=== PATIENT | female | born 1995 | race Caucasian/White ===

== ENCOUNTER 2017-04-22 12:17 | Emergency (ER) | payer MEDICAID, OTHER ==
--- NOTE | 2017-04-22 14:05 | ED PDOC ---
Arrival/HPI - General Historian: Patient - History of Present Illness Time/Duration: Other (2 days) Symptom Onset: Gradual Symptom Course: Worsening Quality: Burning Severity Level: 3 - General Chief Complaint: ENT Problem Time Seen by Provider: 04/22/17 14:01 - History of Present Illness Narrative History of Present Illness (Text): 04/22/17 14:01 22-year-old female presents today with a 2 day history of sore throat. Patient denies fevers at home. Complaining of burning with swallowing. Denies nasal congestion or cough. No abdominal pain. No dizziness or weakness. Patient also complaining of a small bump to the area just adjacent to the anus. Patient concerned that it may be herpes. no other complaints. (Fariba Yoder) Past Medical History - Provider Review Nursing Documentation Reviewed: Yes - Travel History Have you recently traveled outside [place] w/in the past 3 mons?: No - Infectious Disease Hx of Infectious Diseases: None - Tetanus Immunization Tetanus Immunization: Unknown - Cardiac Hx Cardiac Disorders: No Hx Hypertension: No - Pulmonary Hx Tuberculosis: No - Neurological HX Cerebrovascular Accident: No Hx Seizures: No - Hematological/Oncological Hx Cancer: No - Genitourinary/Gynecological Hx Sexually Transmitted Diseases: No - Psychiatric Hx Substance Use: Yes - Anesthesia Hx Anesthesia: No Family/Social History - Physician Review Nursing Documentation Reviewed: Yes Family/Social History: Unknown Family HX Smoking Status: Heavy Smoker > 10 Cigarettes Daily Hx Alcohol Use: Yes Frequency of alcohol use: Daily Hx Substance Use: Yes Substance used: pot Allergies/Home Meds Allergies/Adverse Reactions: Allergies No Known Allergies Allergy (Verified 04/22/17 12:29) Review of Systems - Review of Systems Constitutional: absent: Fatigue, Fevers ENT: Sore Throat. absent: Sinus Congestion Respiratory: absent: SOB, Cough Cardiovascular: absent: Chest Pain, Palpitations Gastrointestinal: absent: Abdominal Pain, Nausea, Vomiting Genitourinary Female: absent: Dysuria, Frequency Musculoskeletal: absent: Arthralgias, Back Pain, Neck Pain Skin: Rash Neurological: absent: Headache, Dizziness Psychiatric: absent: Anxiety, Depression Physical Exam Vital Signs Reviewed: Yes Temperature: Afebrile Blood Pressure: Normal Pulse: Regular Respiratory Rate: Normal Appearance: Positive for: Well-Appearing, Non-Toxic, Comfortable Pain Distress: None Mental Status: Positive for: Alert and Oriented X 3 - Systems Exam Head: Present: Atraumatic Conjunctiva: Present: Normal Ears: Present: Normal, NORMAL TM Mouth: Present: Moist Mucous Membranes Pharnyx: Present: ERYTHEMA. No: EXUDATE, TONSILS ENLARGED, Peritonsilar Swelling, Uvular Deviation, Muffled/Hoarse Voice Nose (External): Present: Atraumatic Nose (Internal): Present: Normal Inspection Neck: Present: Normal Range of Motion Respiratory/Chest: Present: Clear to Auscultation, Good Air Exchange. No: Respiratory Distress, Accessory Muscle Use Cardiovascular: Present: Regular Rate and Rhythm, Normal S1, S2. No: Murmurs Rectal: Present: Other (there is a small pinpoint skin colored papule noted to the right side of the buttock just adjacent to the anus; no tenderness, no erythema; no warmth. ) Back: Present: Normal Inspection Neurological: Present: GCS=15 Skin: Present: Warm, Dry, Normal Color. No: Rashes Psychiatric: Present: Alert, Oriented x 3 Vital Signs Temp Pulse Resp BP Pulse Ox 04/22/17 14:45 98 F 70 16 110/72 98 04/22/17 12:31 98.3 F 76 17 108/73 96 Medical Decision Making ED Course and Treatment: 04/22/17 14:34 Patient is nontoxic well appearing in no distress. Vital signs are stable Tolerating p.o. fluids and solids pt with small skin colored pinpoint papule on buttock adjacent to anus; this is NOT herpes as patient was concerned. no signs of infection. non tender. I advised follow up with primary care physician within the next 2 days, advised to increase fluids take medications as prescribed and return if symptoms worsen persist or if new symptoms develop IMPRESSION; pharyngitis Motrin every 6 hours as needed for pain/fever reduction Increase fluids Amoxicillin; 3 times daily x10 days Follow up primary care physician within the next 2 days Saltwater gargles, throat lozenges Return if symptoms worsen persist or if the symptoms develop (Fariba Yoder) I was available for consultation during PA evaluation. The chart was reviewed by me, and I agree with disposition. The documented history was done by the physician machine tailer. The documented physical exam was done by the physician machine tailer. The documented procedures were done by the physician machine tailer. (Parmjit Seo) Disposition/Present on Arrival - Present on Arrival Any Indicators Present on Arrival: No History of DVT/PE: No History of Uncontrolled Diabetes: No Urinary Catheter: No History of Decub. Ulcer: No History Surgical Site Infection Following: None - Disposition Have Diagnosis and Disposition been Completed?: Yes Disposition Time: 13:40 Patient Plan: Discharge - Disposition Diagnosis: Pharyngitis, Rash Disposition: HOME/ ROUTINE Condition: GOOD Discharge Instructions (ExitCare): Pharyngitis (ED) Additional Instructions: Motrin every 6 hours as needed for pain/fever reduction Increase fluids Amoxicillin 3 times daily x10 days Follow up primary care physician within the next 2 days Saltwater gargles, throat lozenges Return if symptoms worsen persist or if the symptoms develop Prescriptions: Amoxicillin 500 mg PO TID #30 tab Ibuprofen [Motrin Tab] 400 mg PO Q6H PRN #20 tab PRN Reason: Pain, Mild (1-3) Referrals: [facility] [place] - Follow up with primary Lenora Roman MD [Staff Provider] - Follow up with primary Wero Abreu DO [Doctor Osteopathy] - Follow up with primary Forms: [employer] (Yoruba), WORK NOTE
[2017-04-22 14:46] VITALS: BP 110/72; PULSE 70; RESP 16; TEMP 98; O2SAT 98
== END 2017-04-22 14:47 | disposition home or self-care (01) ==
LOC: ED 12:17
DX: J02.9 Acute pharyngitis, unspecified (principal); R21 Rash and other nonspecific skin eruption; F17.210 Nicotine dependence, cigarettes, uncomplicated

== ENCOUNTER 2018-02-05 05:07 | Emergency (ER) | payer MEDICAID ==
[2018-02-05] MEDS ORDERED: Sodium Chloride 0.9% 1,000 ML IV STA (05:43)
--- NOTE | 2018-02-05 05:46 | ED PDOC ---
Arrival/HPI - General Chief Complaint: Abdominal Pain Time Seen by Provider: 02/05/18 05:37 Historian: Patient - History of Present Illness Narrative History of Present Illness (Text): 02/05/18 05:43 22 year old female, with no significant past medical history, who presents to the emergency department complaining of abdominal pain since early this morning. Patient notes associated diarrhea. Patient states her menstrual period began yesterday. Patient denies any fever, chills, chest pain, shortness of breath, nausea, vomiting, diarrhea, dysuria, back pain, vaginal discharge, neck pain, headache, dizziness, or any other complaints. Time/Duration: 4-6 hours Symptom Onset: Sudden Symptom Course: Unchanged Activities at Onset: Light Context: Home Past Medical History - Provider Review Nursing Documentation Reviewed: Yes - Infectious Disease Hx of Infectious Diseases: None - Tetanus Immunization Tetanus Immunization: Unknown - Cardiac Hx Cardiac Disorders: No Hx Hypertension: No - Pulmonary Hx Tuberculosis: No - Neurological HX Cerebrovascular Accident: No Hx Seizures: No - Hematological/Oncological Hx Cancer: No - Genitourinary/Gynecological Hx Sexually Transmitted Diseases: No - Psychiatric Hx Substance Use: Yes - Anesthesia Hx Anesthesia: No Family/Social History - Physician Review Nursing Documentation Reviewed: Yes Family/Social History: Unknown Family HX Smoking Status: Heavy Smoker > 10 Cigarettes Daily Hx Alcohol Use: Yes Hx Substance Use: Yes Substance used: pot Allergies/Home Meds Allergies/Adverse Reactions: Allergies No Known Allergies Allergy (Verified 02/05/18 05:37) Home Medications: Home Meds Medication Instructions Recorded Confirmed No Known Home Med 02/05/18 02/05/18 Review of Systems - Physician Review All systems were reviewed & negative as marked: Yes - Review of Systems Constitutional: Normal Eyes: Normal ENT: Normal Respiratory: Normal. absent: SOB, Cough Cardiovascular: Normal. absent: Chest Pain Gastrointestinal: Abdominal Pain, Diarrhea. absent: Nausea, Vomiting Genitourinary Female: Normal. absent: Dysuria, Frequency, Hematuria Musculoskeletal: Normal. absent: Back Pain, Neck Pain Skin: Normal. absent: Rash Neurological: Normal. absent: Headache, Dizziness Endocrine: Normal Hemo/Lymphatic: Normal Psychiatric: Normal Physical Exam Vital Signs Temp Pulse Resp BP Pulse Ox 02/05/18 05:48 98.7 F 62 16 114/57 L 100 - Systems Exam Head: Present: Atraumatic, Normocephalic Pupils: Present: PERRL Extroacular Muscles: Present: EOMI Conjunctiva: Present: Normal Mouth: Present: Moist Mucous Membranes Neck: Present: Normal Range of Motion Respiratory/Chest: Present: Clear to Auscultation, Good Air Exchange. No: Respiratory Distress, Accessory Muscle Use Cardiovascular: Present: Regular Rate and Rhythm, Normal S1, S2. No: Murmurs Abdomen: Present: Tenderness (Left Lower abdominal tenderness), Normal Bowel Sounds. No: Distention, Peritoneal Signs, Rebound, Guarding Back: Present: Normal Inspection Upper Extremity: Present: Normal Inspection. No: Cyanosis, Edema Lower Extremity: Present: Normal Inspection. No: Edema Neurological: Present: GCS=15, CN II-XII Intact, Speech Normal Skin: Present: Warm, Dry, Normal Color. No: Rashes Psychiatric: Present: Alert, Oriented x 3, Normal Insight, Normal Concentration Medical Decision Making ED Course and Treatment: 02/05/18 05:46 Impression: 22 year old presents to the emergency department complaining of abdominal pain since early this morning. Plan: -- Labs -- Urinalysis -- HCG, Qualitative Urine -- Sodium Chloride -- Reassess and disposition Progress Notes: 02/05/18 07:00 Case endorsed to /pending labs/CT Abdom/Pelvis/reassess/final disposition - Lab Interpretations Lab Results: 02/05/18 06:00 Lab Results 02/05/18 06:00: WBC 16.9 H D, RBC 4.66, Hgb 14.4, Hct 41.7, MCV 89.5, MCH 30.9, MCHC 34.5, RDW 13.8, Plt Count 287, MPV 11.5 H - RAD Interpretation Radiology Orders: 02/05/18 06:42 ABD & PELVIS IV CONTRAST ONLY [CT] Stat - Medication Orders Current Medication Orders: Sodium Chloride (Sodium Chloride 0.9%) 1,000 mls @ 999 mls/hr IV .Q1H1M STA Stop: 02/05/18 06:43 Last Admin: 02/05/18 06:12 Dose: 999 mls/hr eMAR Start Stop Document 02/05/18 06:12 IT (Rec: 02/05/18 06:12 IT [facility] [id number]) Intravenous Solution Start Date 02/05/18 Start Time 06:12 End Date 02/05/18 End time 07:12 Total Infusion Time 60 - Scribe Statement The provider has reviewed the documentation as recorded by the Scribso Andersen All medical record entries made by the Scribe were at my direction and personally dictated by me. I have reviewed the chart and agree that the record accurately reflects my personal performance of the history, physical exam, medical decision making, and the department course for this patient. I have also personally directed, reviewed, and agree with the discharge instructions and disposition. Disposition/Present on Arrival - Present on Arrival Any Indicators Present on Arrival: No History of DVT/PE: No History of Uncontrolled Diabetes: No Urinary Catheter: No History of Decub. Ulcer: No History Surgical Site Infection Following: None - Disposition Have Diagnosis and Disposition been Completed?: No Diagnosis: Abdominal pain Disposition Time: 07:00 Condition: STABLE Forms: [employer] (Bahraini)
[2018-02-05 06:29] LABS: HEMOGLOBIN 14.4 g/dL (12.0-16.0); MEAN CELL VOLUME 89.5 fl (80.0-105.0); MEAN CORPUSCULAR HEMOGLOBIN 30.9 pg (25.0-35.0); MEAN CORPUSCULAR HGB CONC 34.5 g/dl (31.0-37.0); MEAN PLATELET VOLUME 11.5 fl (7.0-11.0); RBC 4.66 10^6/uL (3.5-6.1); RED CELL DISTRIBUTION WIDTH 13.8 % (11.5-14.5); WHITE BLOOD COUNT 16.9 10^3/ul (4.5-11.0)
[2018-02-05 06:47] LABS: ALB/GLOB RATIO 1.6 (1.1-1.8); ALBUMIN 4.8 g/dL (3.0-4.8); ALT/SGPT 30 U/L (7-56); AST/SGOT 27 U/L (14-36); BLOOD UREA NITROGEN 10 mg/dL (7-21); CALCIUM 9.1 mg/dL (8.4-10.5); GFR AFRICAN-AMERICAN > 60; GFR NON-AFRICAN AMERICAN > 60; LIPASE 26 U/L (23-300)
[2018-02-05 06:49] LABS: URINE BILIRUBIN NEGATIVE (NEGATIVE); URINE BLOOD LARGE (NEGATIVE); URINE GLUCOSE (UA) NEGATIVE (NEGATIVE); URINE LEUKOCYTE ESTERASE TRACE Leu/uL (NEGATIVE); URINE PROTEIN >=300 mg/dL (<30 mg/dL); URINE UROBILINOGEN 0.2 E.U./dL (<1 E.U./dL)
[2018-02-05 06:54] LABS: URINE APPEARANCE BLOODY (CLEAR); URINE COLOR RED (YELLOW)
[2018-02-05 06:55] LABS: URINE RBC TNTC /hpf (0-2); URINE WBC 25 - 30 /hpf (0-6)
[2018-02-05 06:56] LABS: HCG,QUALITATIVE URINE NEGATIVE (NEGATIVE); URINE BACTERIA MOD (NEG)
--- NOTE | 2018-02-05 07:21 | ED PDOC ---
Physical Exam Vital Signs Reviewed: Yes Vital Signs Temp Pulse Resp BP Pulse Ox 02/05/18 07:07 98.1 F 70 18 121/70 100 02/05/18 05:48 98.7 F 62 16 114/57 L 100 Temperature: Afebrile Blood Pressure: Normal Pulse: Regular Respiratory Rate: Normal Appearance: Positive for: Well-Appearing, Non-Toxic, Comfortable Pain Distress: None Mental Status: Positive for: Alert and Oriented X 3 - Systems Exam Head: Present: Atraumatic, Normocephalic Pupils: Present: PERRL Extroacular Muscles: Present: EOMI Conjunctiva: Present: Normal Mouth: Present: Moist Mucous Membranes Neck: Present: Normal Range of Motion Respiratory/Chest: Present: Clear to Auscultation, Good Air Exchange. No: Respiratory Distress, Accessory Muscle Use Cardiovascular: Present: Regular Rate and Rhythm, Normal S1, S2. No: Murmurs Abdomen: Present: Tenderness (Left Lower abdominal tenderness), Normal Bowel Sounds. No: Distention, Peritoneal Signs Back: Present: Normal Inspection Upper Extremity: Present: Normal Inspection. No: Cyanosis, Edema Lower Extremity: Present: Normal Inspection. No: Edema Neurological: Present: GCS=15, CN II-XII Intact, Speech Normal Skin: Present: Warm, Dry, Normal Color. No: Rashes Psychiatric: Present: Alert, Oriented x 3, Normal Insight, Normal Concentration Medical Decision Making ED Course and Treatment: 02/05/18 07:12 Case endorsed to me pending labs/CT Abdom/Pelvis/reassess/final disposition. Patient is a 22 year old female who presents to the emergency department complaining of abdominal pain since early this morning. Patient is resting comfortably in bed in no acute distress. Patient presents no new complaints. 02/05/18 09:14 Upon reassessment, patient informs improved symptoms. Patient will be discharged home with treatment for UTI and follow up instruction with PMD. - Lab Interpretations Lab Results: 02/05/18 06:00 02/05/18 06:00 Lab Results 02/05/18 06:00: WBC 16.9 H D, RBC 4.66, Hgb 14.4, Hct 41.7, MCV 89.5, MCH 30.9, MCHC 34.5, RDW 13.8, Plt Count 287, MPV 11.5 H 02/05/18 06:00: Sodium 142, Potassium 3.7, Chloride 105, Carbon Dioxide 25, Anion Gap 15, BUN 10, Creatinine 0.6 L, Est GFR ( Amer) > 60, Est GFR ( Non-Af Amer) > 60, Random Glucose 112 H, Calcium 9.1, Total Bilirubin 0.6, AST 27, ALT 30, Alkaline Phosphatase 45, Total Protein 7.7, Albumin 4.8, Globulin 3.0, Albumin/Globulin Ratio 1.6, Lipase 26 02/05/18 06:00: Urine Color Red, Urine Appearance Bloody, Urine pH 6.0, Ur Specific [place] >= 1.030, Urine Protein >=300 H, Urine Glucose (UA) Negative, Urine Ketones >=80, Urine Blood Large H, Urine Nitrate Negative, Urine Bilirubin Negative, Urine Urobilinogen 0.2, Ur Leukocyte Esterase Trace H, Urine RBC Tntc, Urine WBC 25 - 30, Ur Epithelial Cells 3 - 4, Urine Bacteria Mod , Urine HCG, Qual Negative - RAD Interpretation Narrative RAD Interpretations (Text): Date of service: 02/05/2018 PROCEDURE: CT Abdomen and Pelvis with contrast HISTORY: Abdominal pain COMPARISON: None. TECHNIQUE: CT scan of the abdomen and pelvis was performed after administration of intravenous contrast. Oral contrast was not administered. Coronal and sagittal reformatted images were obtained. Contrast dose: 100 mL Omnipaque 350 Radiation dose: Total exam DLP = 215.10 mGy-cm. This CT exam was performed using one or more of the following dose reduction techniques: Automated exposure control, adjustment of the mA and/or kV according to patient size, and/or use of iterative reconstruction technique. FINDINGS: LOWER THORAX: The visualized lungs are clear. LIVER: There is mild hepatomegaly. No gross lesion or ductal dilatation. GALLBLADDER AND BILE DUCTS: No calcified gallstones. PANCREAS: Normal in size and appearance. No gross lesion or ductal dilatation. SPLEEN: Normal in size and appearance. ADRENALS: No discrete nodule. KIDNEYS AND URETERS: Normal in size and appearance. No hydronephrosis. No solid mass. VASCULATURE: Unremarkable. No aortic aneurysm. BOWEL: The small bowel loops are normal in caliber. The colon is unremarkable. No bowel dilatation or obstruction APPENDIX: Normal appendix. PERITONEUM: No free fluid. No free air. LYMPH NODES: No enlarged lymph nodes. BLADDER: Unremarkable. REPRODUCTIVE: The uterus is normal in size. BONES: No acute fracture. Within normal limits for the patient's age. OTHER FINDINGS: None. IMPRESSION: No acute abdominal or pelvic abnormality. Radiology Orders: 02/05/18 06:42 ABD & PELVIS IV CONTRAST ONLY [CT] Stat - Medication Orders Current Medication Orders: Discontinued Medications Sodium Chloride (Sodium Chloride 0.9%) 1,000 mls @ 999 mls/hr IV .Q1H1M STA Stop: 02/05/18 06:43 Last Admin: 02/05/18 06:12 Dose: 999 mls/hr eMAR Start Stop Document 02/05/18 06:12 IT (Rec: 02/05/18 06:12 IT [facility] [id number]) Intravenous Solution Start Date 02/05/18 Start Time 06:12 End Date 02/05/18 End time 07:12 Total Infusion Time 60 - Scribe Statement The provider has reviewed the documentation as recorded by the Loreneibso Cortez training [facility] All medical record entries made by the Scribe were at my direction and personally dictated by me. I have reviewed the chart and agree that the record accurately reflects my personal performance of the history, physical exam, medical decision making, and the department course for this patient. I have also personally directed, reviewed, and agree with the discharge instructions and disposition. Disposition/Present on Arrival - Present on Arrival Any Indicators Present on Arrival: No History of DVT/PE: No History of Uncontrolled Diabetes: No Urinary Catheter: No History of Decub. Ulcer: No History Surgical Site Infection Following: None - Disposition Have Diagnosis and Disposition been Completed?: Yes Diagnosis: Abdominal pain, UTI (urinary tract infection) Disposition: HOME/ ROUTINE Disposition Time: 09:25 Condition: STABLE Discharge Instructions (ExitCare): Urinary Tract Infection, Adult (DC) Additional Instructions: DEYANIRA DÍAZ, thank you for letting us take care of you today. Your provider was Janine Powell MD and you were treated for ABDOMINAL PAIN. The emergency medical care you received today was directed at your acute symptoms. If you were prescribed any medication, please fill it and take as directed. It may take several days for your symptoms to resolve. Return to the Emergency Department if your symptoms worsen, do not improve, or if you have any other problems. Please contact your doctor or call one of the physicians/clinics you have been referred to that are listed on the Patient Visit Information form that is included in your discharge packet. Bring any paperwork you were given at discharge with you along with any medications you are taking to your follow up visit. Our treatment cannot replace ongoing medical care by a primary care provider outside of the emergency department. Thank you for allowing the [facility] team to be part of your care today. If you had an X-Ray or CT scan: A Radiologist will review the ED reading if any change in treatment is needed we will contact you. If you had a blood, urine, or wound culture: It will take several days for the results, if any change in treatment is needed we will contact you. If you had an STI test: It will take 48 hours for the results. Please call after 1 week if you have not heard back. Prescriptions: Nitrofurantoin Macrocrystals [Macrobid] 100 mg PO BID #14 cap Forms: [employer] (Guatemalan)
[2018-02-05] MEDS ORDERED: Iohexol 350 MG/100 ML VIAL ONE (07:36)
[2018-02-05 08:07] VITALS: RESP 18
--- NOTE | 2018-02-05 09:09 | CT ---
Date of service: 02/05/2018 PROCEDURE: CT Abdomen and Pelvis with contrast HISTORY: Abdominal pain COMPARISON: None. TECHNIQUE: CT scan of the abdomen and pelvis was performed after administration of intravenous contrast. Oral contrast was not administered. Coronal and sagittal reformatted images were obtained. Contrast dose: 100 mL Omnipaque 350 Radiation dose: Total exam DLP = 215.10 mGy-cm. This CT exam was performed using one or more of the following dose reduction techniques: Automated exposure control, adjustment of the mA and/or kV according to patient size, and/or use of iterative reconstruction technique. FINDINGS: LOWER THORAX: The visualized lungs are clear. LIVER: There is mild hepatomegaly. No gross lesion or ductal dilatation. GALLBLADDER AND BILE DUCTS: No calcified gallstones. PANCREAS: Normal in size and appearance. No gross lesion or ductal dilatation. SPLEEN: Normal in size and appearance. ADRENALS: No discrete nodule. KIDNEYS AND URETERS: Normal in size and appearance. No hydronephrosis. No solid mass. VASCULATURE: Unremarkable. No aortic aneurysm. BOWEL: The small bowel loops are normal in caliber. The colon is unremarkable. No bowel dilatation or obstruction APPENDIX: Normal appendix. PERITONEUM: No free fluid. No free air. LYMPH NODES: No enlarged lymph nodes. BLADDER: Unremarkable. REPRODUCTIVE: The uterus is normal in size. BONES: No acute fracture. Within normal limits for the patient's age. OTHER FINDINGS: None. IMPRESSION: No acute abdominal or pelvic abnormality.
[2018-02-05 09:25] VITALS: BP 125/70; PULSE 77; TEMP 98.6; O2SAT 99
== END 2018-02-05 09:20 | disposition home or self-care (01) ==
LOC: ED 05:07
DX: N39.0 Urinary tract infection, site not specified (principal); R10.9 Unspecified abdominal pain; F17.210 Nicotine dependence, cigarettes, uncomplicated
CPT/HCPCS: 74177; 80053; 81001; 83690; 84703; 85027; 87086; 96360; 99283; J7030; Q9967

== ENCOUNTER 2018-02-10 05:17 | Emergency (ER) | payer MEDICAID ==
[2018-02-10 05:31] VITALS: BP 103/79; PULSE 124; RESP 18; TEMP 98.4; O2SAT 98
[2018-02-10] MEDS ORDERED: TDAP Vaccine 0.5 mL Syr IM ONE (05:37)
--- NOTE | 2018-02-10 05:53 | ED PDOC ---
Arrival/HPI <Anil Romero - Last Filed: 02/10/18 06:23> <Karissa Duffy - Last Filed: 02/10/18 06:52> - General Chief Complaint: Abnormal Skin Integrity Time Seen by Provider: 02/10/18 05:23 - History of Present Illness Narrative History of Present Illness (Text): 22 year old female with no relevant past medical history presents to the ER drunk. She reports playing the [employer] game and cut the palmar aspect of her right 5th finger 20 minutes prior to presentation. She also reports loss of sensation of right 5th finger after laceration. She reports no other symptoms. It is unknown when her last tetanus shot was. (Karissa Duffy) Past Medical History - Provider Review Nursing Documentation Reviewed: Yes - Infectious Disease Hx of Infectious Diseases: None - Tetanus Immunization Tetanus Immunization: Unknown - Cardiac Hx Cardiac Disorders: No Hx Hypertension: No - Pulmonary Hx Tuberculosis: No - Neurological HX Cerebrovascular Accident: No Hx Seizures: No - Hematological/Oncological Hx Cancer: No - Genitourinary/Gynecological Hx Sexually Transmitted Diseases: No - Psychiatric Hx Substance Use: Yes - Anesthesia Hx Anesthesia: No <Kairssa Duffy - Last Filed: 02/10/18 06:52> Family/Social History - Physician Review Nursing Documentation Reviewed: Yes Family/Social History: Unknown Family HX Smoking Status: Heavy Smoker > 10 Cigarettes Daily Hx Alcohol Use: Yes Hx Substance Use: Yes Substance used: pot <Karissa Duffy - Last Filed: 02/10/18 06:52> Allergies/Home Meds <Anil Romero - Last Filed: 02/10/18 06:23> <Karissa Duffy - Last Filed: 02/10/18 06:52> Allergies/Adverse Reactions: Allergies No Known Allergies Allergy (Verified 02/05/18 05:37) Review of Systems - Physician Review All systems were reviewed & negative as marked: Yes - Review of Systems Constitutional: Normal Eyes: Normal ENT: Normal Respiratory: Normal Cardiovascular: Normal Gastrointestinal: Normal Genitourinary Female: Normal Musculoskeletal: Normal Skin: Laceration (right 5th digit palmar aspect) Neurological: Other (numbness of right 5th digit ) <Karissa Duffy - Last Filed: 02/10/18 06:52> Physical Exam <Anil Romero - Last Filed: 02/10/18 06:23> Vital Signs Reviewed: Yes Temperature: Afebrile Blood Pressure: Normal Pulse: Regular Respiratory Rate: Normal Appearance: Positive for: Well-Appearing Mental Status: Positive for: Alert and Oriented X 3 - Systems Exam Head: Present: Atraumatic, Normocephalic Pupils: Present: PERRL Extroacular Muscles: Present: EOMI Nose (External): Present: Atraumatic Respiratory/Chest: Present: Clear to Auscultation Cardiovascular: Present: Regular Rate and Rhythm Abdomen: Present: Normal Bowel Sounds. No: Tenderness, Distention Upper Extremity: Present: Other (laceration of right 5th digit palmar apsect) Lower Extremity: Present: Normal Inspection, NORMAL PULSES, Normal ROM Neurological: Present: GCS=15, CN II-XII Intact, Speech Normal, Motor Func Grossly Intact Skin: Present: Warm, Dry, Normal Color, Laceration (right 5th digit palmar aspect. movement preserved. MSK +5/5) Psychiatric: Present: Alert, Oriented x 3, Normal Insight, Normal Concentration <Karissa Duffy - Last Filed: 02/10/18 06:52> Vital Signs Temp Pulse Resp BP Pulse Ox 02/10/18 05:17 98.4 F 124 H 18 103/79 98 Medical Decision Making <HeatherAnil - Last Filed: 02/10/18 06:23> <Karissa Duffy - Last Filed: 02/10/18 06:52> ED Course and Treatment: In agreement with resident note which contains more details about the patient. Patient was seen and evaluated with resident. Came up with plan and treatment together. 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 (Anil Romero) Impression: 22 year old female with no relevant past medical history presents to the ER drunk. She reports playing the knives game and cut the palmar aspect of her right 5th finger. Assessment: laceration of right 5th digit palmar aspect Rule out laceration of nerve and fracture Plan: X ray of right 5th digit to rule out fracture. 5-0 vicryl sutures will be placed to close wound. TDAP shot given. Patient will be discharged with motrin for pain and follow up with surgeon, Dr. Oviedo for evaluation of 5th digit right hand numbness and for removal of sutures with [facility] or [place] [facility]. (Karissa Duffy) - RAD Interpretation Radiology Orders: 02/10/18 05:36 HAND RIGHT 5TH DIGIT (FINGER) [RAD] Stat - Medication Orders Current Medication Orders: Discontinued Medications Lidocaine HCl (Lidocaine 1% (20ml)) 5 ml IJ STAT STA Stop: 02/10/18 05:58 Tetanus/Reduced Diphtheria/Acell Pertussis (Boostrix Vaccine Inj) 0.5 ml IM .ONCE ONE Stop: 02/10/18 05:38 Last Admin: 02/10/18 06:17 Dose: 0.5 ml - Procedure PROCEDURE NOTE (Text): Procedure Name: Laceration Repair Indication: Reduce risk of infection Location: [facility] ER Pre-Procedure Diagnosis: Laceration Post-Procedure Diagnosis: Repaired Laceration Informed consent was obtained before procedure started. PROCEDURE: The appropriate timeout was taken. The area was prepped and draped in the usual sterile fashion. Local anesthesia was achieved using 2 cc of Lidocaine 1%. The wound was copiously irrigated. 3 5-0 Nylon interrupted sutures were placed. Estimated blood loss was less than 0.5 mL. A dressing was applied to the area and anticipatory guidance, as well as standard post-procedure care, was explained. Return precautions are given. The patient tolerated the procedure well without complications. Follow-up visit set for suture removal and evaluation of the laceration. (Karissa Duffy) - PA / REVENUE FIELD AGENT / Resident Statement ANSHU has reviewed & agrees with the documentation as recorded. ANSHU has examined the patient and agrees with the treatment plan. <Anil Romero - Last Filed: 02/10/18 06:23> - PA / REVENUE FIELD AGENT / Resident Statement ANSHU has reviewed & agrees with the documentation as recorded. ANSHU has examined the patient and agrees with the treatment plan. <Karissa Duffy - Last Filed: 02/10/18 06:52> Disposition/Present on Arrival <Anil Romero - Last Filed: 02/10/18 06:23> - Present on Arrival Any Indicators Present on Arrival: No History of DVT/PE: No History of Uncontrolled Diabetes: No Urinary Catheter: No History of Decub. Ulcer: No History Surgical Site Infection Following: None - Disposition Have Diagnosis and Disposition been Completed?: Yes Disposition Time: 06:37 Patient Plan: Discharge <CliveKarissa - Last Filed: 02/10/18 06:52> - Disposition Diagnosis: Laceration Disposition: HOME/ ROUTINE Patient Problems: Current Active Problems Problem Status Onset Laceration Acute Condition: STABLE Additional Instructions: DEYANIRA DÍAZ, thank you for letting us take care of you today. Your provider was Anil Romero MD and Karissa Duffy DO and you were treated for Laceration of palmar aspect of right 5th digit of hand. The emergency medical care you received today was directed at your acute symptoms. Vicryl sutures were placed on right 5th digit palmar aspect to close laceration. Return to the Emergency Department if your symptoms worsen, do not improve, or if you have any other problems. Please return to ED or to see your primary care physician in 10-14 days to have sutures removed. Follow up with Dr. Nugent for loss of sensation of right hand 5th digit. Bring any paperwork you were given at discharge with you along with any medications you are taking to your follow up visit. Our treatment cannot replace ongoing medical care by a primary care provider outside of the emergency department. Thank you for allowing the [employer] team to be part of your care today. Prescriptions: Ibuprofen [Motrin] 400 mg PO Q6 PRN 5 Days #20 tab PRN Reason: Pain, Moderate (4-7) Referrals: [facility] [Outside] - Follow up with primary Clark Oviedo MD [Staff Provider] - Follow up with primary Forms: [employer] (Nicaraguan)
[2018-02-10] MEDS ORDERED: Lidocaine 1% Inj (20ml) IJ STA (05:57)
--- NOTE | 2018-02-10 09:18 | RAD ---
Date of service: 02/10/2018 PROCEDURE: Right small finger radiographs. HISTORY: right hand 5th digit laceration COMPARISON: None. TECHNIQUE: AP radiograph of the right hand, as well as spot oblique and lateral images of small finger were obtained. FINDINGS: RIGHT SMALL FINGER: Normal right small finger, without fracture or focal lesion. Remainder of the right hand (as seen on the AP view) grossly unremarkable. JOINTS: Normal. SOFT TISSUES: Normal. OTHER FINDINGS: None. IMPRESSION: Normal right small finger radiographs.
== END 2018-02-10 06:45 | disposition home or self-care (01) ==
LOC: ED 05:17
DX: S61.216A Laceration without foreign body of right little finger without damage to nail, initial encounter (principal); W26.0XXA Contact with knife, initial encounter; Y92.9 Unspecified place or not applicable; Z23 Encounter for immunization

== ENCOUNTER 2018-02-16 00:30 | Emergency (ER) | payer MEDICAID ==
[2018-02-16 00:36] VITALS: BP 102/68; PULSE 79; RESP 18; TEMP 97.9
--- NOTE | 2018-02-16 01:03 | ED PDOC ---
Arrival/HPI - General Chief Complaint: Abnormal Skin Integrity Time Seen by Provider: 02/16/18 00:45 Historian: Patient - History of Present Illness Narrative History of Present Illness (Text): 02/16/18 01:00 22 yo F present for wound check to the R 5th digit, she wants to make sure her wound isn't infected. Denies any numbness, fever, chills, redness, swelling, d/ c from the wound. Reports that she sustained the laceration on 02/10/18 and was treated here for repair of the wound. She admits not cleaning the wound as she should be. Past Medical History - Infectious Disease Hx of Infectious Diseases: None - Tetanus Immunization Tetanus Immunization: Unknown - Cardiac Hx Cardiac Disorders: No - Pulmonary Hx Respiratory Disorders: No - Neurological Hx Neurological Disorder: No - HEENT Hx HEENT Disorder: No - Renal Hx Renal Disorder: No - Endocrine/Metabolic Hx Endocrine Disorders: No - Hematological/Oncological Hx Blood Disorders: No - Integumentary Hx Dermatological Disorder: No - Musculoskeletal/Rheumatological Hx Musculoskeletal Disorders: No - Gastrointestinal Hx Gastrointestinal Disorders: No - Genitourinary/Gynecological Hx Genitourinary Disorders: No Hx Sexually Transmitted Diseases: No - Psychiatric Hx Psychophysiologic Disorder: No Hx Substance Use: Yes - Anesthesia Hx Anesthesia: No Family/Social History Family/Social History: No Known Family HX Smoking Status: Heavy Smoker > 10 Cigarettes Daily Hx Alcohol Use: Yes Hx Substance Use: Yes Substance used: pot Allergies/Home Meds Allergies/Adverse Reactions: Allergies No Known Allergies Allergy (Verified 02/16/18 00:34) Review of Systems - Review of Systems Constitutional: absent: Fatigue, Fevers Musculoskeletal: absent: Arthralgias, Back Pain, Neck Pain Skin: Laceration. absent: Rash, Pruritis Physical Exam Vital Signs Temp Pulse Resp BP Pulse Ox 02/16/18 00:35 97.9 F 79 18 102/68 99 Temperature: Afebrile Blood Pressure: Normal Pulse: Regular Respiratory Rate: Normal Appearance: Positive for: Well-Appearing, Non-Toxic, Comfortable Pain Distress: None Mental Status: Positive for: Alert and Oriented X 3 - Systems Exam Upper Extremity: Present: NORMAL PULSES, Neurovascularly Intact, Capillary Refill < 2s, Norm 2-Pt Discrimination, Other (R hand : +healing sutured wound to the volar aspect of the 5th digit by the PIP, no erythema, no edema, no d/c, limited ROM secondary to pain, sensation intact). No: Edema, Swelling, Erythema , Deformity Neurological: Present: GCS=15, CN II-XII Intact, Motor Func Grossly Intact, Normal Sensory Function Skin: Present: Warm, Dry. No: Rashes, Normal Color Medical Decision Making ED Course and Treatment: 02/16/18 01:04 Wound is healing well without any signs of infection. Patient offered to have sutures removed as she is due to suture removal tomorrow. 3 out of 4 sutures were removed. Patient is refusing to have the last suture removed as she can not tolerate it any further. Patient advised to clean the wound daily with soap and water and return to the ER or go to her pmd to have the last suture removed and to check on the wound again in 2 days. Wound cleaned, clean dressing applied. Patient given Rx for keflex, advised to take if she develops any signs of infection such as redness, swelling, and d/c. - PA / DEVELOPMENT MGR / Resident Statement / has reviewed & agrees with the documentation as recorded. Disposition/Present on Arrival - Present on Arrival Any Indicators Present on Arrival: No History of DVT/PE: No History of Uncontrolled Diabetes: No Urinary Catheter: No History of Decub. Ulcer: No History Surgical Site Infection Following: None - Disposition Have Diagnosis and Disposition been Completed?: Yes Diagnosis: Visit for wound check Disposition: HOME/ ROUTINE Disposition Time: 01:00 Patient Plan: Discharge Patient Problems: Current Active Problems Problem Status Onset Visit for wound check Acute Condition: STABLE Additional Instructions: Thank you for letting us take care of you today. You were treated for wound check. The emergency medical care you received today was directed at your acute symptoms. If you were prescribed any medication, please fill it and take as directed. It may take several days for your symptoms to resolve. Return to the Emergency Department if your symptoms worsen, do not improve, or if you have any other problems. Please contact your doctor in 2 days for re-evaluation and follow up. Bring any paperwork you were given at discharge with you along with any medications you are taking to your follow up visit. Our treatment cannot replace ongoing medical care by a primary care provider (PCP) outside of the emergency department. Thank you for allowing the [facility] team to be part of your care today. Prescriptions: Cephalexin [Keflex] 500 mg PO Q6 #28 capsule
[2018-02-16 01:32] VITALS: O2SAT 98
== END 2018-02-16 01:31 | disposition home or self-care (01) ==
LOC: ED 00:30
DX: S61.216D Laceration without foreign body of right little finger without damage to nail, subsequent encounter (principal); W26.0XXD Contact with knife, subsequent encounter

== ENCOUNTER 2018-02-19 17:25 | Emergency (ER) | payer MEDICAID ==
[2018-02-19 17:39] VITALS: BP 119/78; PULSE 90; RESP 16; TEMP 99; O2SAT 97
--- NOTE | 2018-02-19 18:26 | ED PDOC ---
Arrival/HPI - General Chief Complaint: Wound Check Time Seen by Provider: 02/19/18 18:11 Historian: Patient - History of Present Illness Narrative History of Present Illness (Text): 02/19/18 18:26 This 22 yo female is here for suture removal x 10 days. Patient stated she was told to come to ED to get suture removed. Patient denies other somatic complains. Time/Duration: Other (see hpi) Context: Home Past Medical History - Provider Review Nursing Documentation Reviewed: Yes - Infectious Disease Hx of Infectious Diseases: None - Tetanus Immunization Tetanus Immunization: Unknown - Cardiac Hx Cardiac Disorders: No - Pulmonary Hx Respiratory Disorders: No - Neurological Hx Neurological Disorder: No - HEENT Hx HEENT Disorder: No - Renal Hx Renal Disorder: No - Endocrine/Metabolic Hx Endocrine Disorders: No - Hematological/Oncological Hx Blood Disorders: No - Integumentary Hx Dermatological Disorder: Yes Other/Comment: LACERATION - Musculoskeletal/Rheumatological Hx Musculoskeletal Disorders: No - Gastrointestinal Hx Gastrointestinal Disorders: No - Genitourinary/Gynecological Hx Genitourinary Disorders: No Hx Sexually Transmitted Diseases: No - Psychiatric Hx Psychophysiologic Disorder: No Hx Substance Use: Yes - Anesthesia Hx Anesthesia: No Family/Social History - Physician Review Nursing Documentation Reviewed: Yes Family/Social History: Other (noncontributory) Smoking Status: Heavy Smoker > 10 Cigarettes Daily Hx Alcohol Use: Yes Hx Substance Use: Yes Substance used: pot Allergies/Home Meds Allergies/Adverse Reactions: Allergies No Known Allergies Allergy (Verified 02/19/18 17:34) Review of Systems - Review of Systems Constitutional: Normal. absent: Fatigue, Weight Change, Fevers, Night Sweats Eyes: Normal ENT: Normal Respiratory: Normal Cardiovascular: Normal Gastrointestinal: Normal Genitourinary Female: Normal Musculoskeletal: Normal Skin: Other (see hpi) Neurological: Normal Endocrine: Normal Hemo/Lymphatic: Normal Psychiatric: Normal Physical Exam Vital Signs Temp Pulse Resp BP Pulse Ox 02/19/18 17:36 99.0 F 90 16 119/78 97 Temperature: Afebrile Blood Pressure: Normal Pulse: Regular Respiratory Rate: Normal Appearance: Positive for: Well-Appearing, Non-Toxic, Comfortable Pain Distress: None Mental Status: Positive for: Alert and Oriented X 3 - Systems Exam Head: Present: Atraumatic, Normocephalic Pupils: Present: PERRL Extroacular Muscles: Present: EOMI Conjunctiva: Present: Normal Mouth: Present: Moist Mucous Membranes Neck: Present: Normal Range of Motion Respiratory/Chest: Present: Clear to Auscultation, Good Air Exchange. No: Respiratory Distress, Accessory Muscle Use Cardiovascular: Present: Regular Rate and Rhythm, Normal S1, S2. No: Murmurs Abdomen: No: Tenderness, Distention, Peritoneal Signs Back: Present: Normal Inspection Upper Extremity: Present: Normal Inspection. No: Cyanosis, Edema Lower Extremity: Present: NORMAL PULSES, Normal ROM, Neurovascularly Intact, Capillary Refill < 2 s, Other ((+) a single Vicryl suture visualized on palmar aspect over PIPJ area of right 5th finger. No erythema or ecchymosis. No dehiscense.). No: Edema Neurological: Present: GCS=15, CN II-XII Intact, Speech Normal Skin: Present: Warm, Dry, Normal Color. No: Rashes Psychiatric: Present: Alert, Oriented x 3, Normal Insight, Normal Concentration Medical Decision Making ED Course and Treatment: 02/19/18 18:28 Re-evaluation. Patient feels better. Discussed results and plan with patient who expresses understanding. All questions answered and there is agreement with the plan to discharge home with instructions. Patient stable for discharge. Return if symptoms persist or worsen. Vicryl suture was removed without complication. Patient was recommended to return to emergency if infection develop. Re-evaluation Time: 18:29 Reassessment Condition: Re-examined, Improved Disposition/Present on Arrival - Present on Arrival Any Indicators Present on Arrival: No History of DVT/PE: No History of Uncontrolled Diabetes: No Urinary Catheter: No History of Decub. Ulcer: No History Surgical Site Infection Following: None - Disposition Have Diagnosis and Disposition been Completed?: Yes Diagnosis: Encounter for wound re-check, Encounter for removal of sutures Disposition: HOME/ ROUTINE Disposition Time: 18:30 Patient Plan: Discharge Condition: GOOD Discharge Instructions (ExitCare): Stitches Removal Additional Instructions: Call private doctor for follow up visit. Return to emergency if finger wouind becomes infected. Clean wound daily with soap and water. Referrals: [facility] [Outside] - Follow up with primary Jada Barnett MD [Staff Provider] - Follow up with primary Forms: [employer] (Georgian)
== END 2018-02-19 18:42 | disposition home or self-care (01) ==
LOC: ED 17:25
DX: Z48.02 Encounter for removal of sutures (principal); F17.210 Nicotine dependence, cigarettes, uncomplicated

== ENCOUNTER 2018-08-20 13:42 | Emergency (ER) | payer SELFPAY ==
[2018-08-20 13:47] VITALS: BMI 19.8
[2018-08-20 13:52] VITALS: O2SAT 99
[2018-08-20] MEDS ORDERED: Sodium Chloride 0.9% 1,000 ML IV STA (14:04)
--- NOTE | 2018-08-20 14:04 | ED PDOC ---
Arrival/HPI - General Chief Complaint: GI Problem Historian: Patient - History of Present Illness Narrative History of Present Illness (Text): 08/20/18 13:59 23 year old female, no significant pmh, nkda, LMP 08/05/2018, complaining of nausea/vomiting x 2-3 days. Pt. stated that she has been feeling nausea/vomiting x 2-3 days, no pain, been feeling fatigue, no abdominal or pelvic pain, no vaginal bleeding or discharge, no headache or night sweat, no rash, no other medical or psychological complaints. Past Medical History - Provider Review Nursing Documentation Reviewed: Yes - Infectious Disease Hx of Infectious Diseases: None - Tetanus Immunization Tetanus Immunization: Unknown - Reproductive Currently : Yes - Cardiac Hx Cardiac Disorders: No - Pulmonary Hx Respiratory Disorders: No - Neurological Hx Neurological Disorder: No - HEENT Hx HEENT Disorder: No - Renal Hx Renal Disorder: No - Endocrine/Metabolic Hx Endocrine Disorders: No - Hematological/Oncological Hx Blood Disorders: No - Integumentary Hx Dermatological Disorder: Yes - Musculoskeletal/Rheumatological Hx Musculoskeletal Disorders: No - Gastrointestinal Hx Gastrointestinal Disorders: No - Genitourinary/Gynecological Hx Genitourinary Disorders: No - Psychiatric Hx Psychophysiologic Disorder: No Hx Substance Use: Yes - Anesthesia Hx Anesthesia: No Family/Social History - Physician Review Nursing Documentation Reviewed: Yes Family/Social History: Unknown Family HX Smoking Status: Heavy Smoker > 10 Cigarettes Daily Hx Alcohol Use: Yes Hx Substance Use: Yes Substance used: pot Allergies/Home Meds Allergies/Adverse Reactions: Allergies No Known Allergies Allergy (Verified 02/19/18 17:34) Review of Systems - Review of Systems Constitutional: Fatigue. absent: Fevers Eyes: absent: Vision Changes ENT: absent: Hearing Changes Respiratory: absent: SOB, Cough, Sputum Cardiovascular: absent: Chest Pain Gastrointestinal: Nausea, Vomiting. absent: Abdominal Pain, Diarrhea Musculoskeletal: absent: Arthralgias, Back Pain Skin: absent: Rash, Pruritis, Cellulitis Neurological: absent: Headache, Dizziness Psychiatric: absent: Anxiety, Depression, Suicidal Ideation Physical Exam Vital Signs Reviewed: Yes Vital Signs Temp Pulse Resp BP Pulse Ox 08/20/18 13:42 98 F 88 18 118/86 99 Temperature: Afebrile Blood Pressure: Normal Pulse: Regular Respiratory Rate: Normal Appearance: Positive for: Well-Appearing, Non-Toxic, Comfortable Pain Distress: None Mental Status: Positive for: Alert and Oriented X 3 - Systems Exam Head: Present: Atraumatic, Normocephalic Pupils: Present: PERRL Extroacular Muscles: Present: EOMI Conjunctiva: Present: Normal Mouth: Present: Moist Mucous Membranes Neck: Present: Normal Range of Motion Respiratory/Chest: Present: Clear to Auscultation, Good Air Exchange. No: Respiratory Distress, Accessory Muscle Use Cardiovascular: Present: Regular Rate and Rhythm, Normal S1, S2. No: Murmurs Abdomen: No: Tenderness, Distention, Peritoneal Signs, Rebound, Guarding Back: Present: Normal Inspection Upper Extremity: Present: Normal Inspection. No: Cyanosis, Edema Lower Extremity: Present: Normal Inspection. No: Edema Neurological: Present: GCS=15, CN II-XII Intact, Speech Normal Skin: Present: Warm, Dry, Normal Color. No: Rashes Psychiatric: Present: Alert, Oriented x 3, Normal Insight, Normal Concentration Medical Decision Making ED Course and Treatment: 08/20/18 14:14 -rapid flu -labs -IVF/bendryl -Observe and reassess 08/20/18 15:49 -Urine hcg is positive -Rapid flu is negative. -Beta hcg [id number] -Labs show no acute findings -Lipase within normal limit -UA show mild UTI -Pt. feels much better, asymptomatic, will discharge home. -Discharge home with dicleegis, keflex, stay hydrated, bed restm, follow up with your own pmd within 2 days, return to the ER for any new or worsening signs or symptoms. - PA / COLLAR STITCHER / Resident Statement MD/DO has reviewed & agrees with the documentation as recorded. Disposition/Present on Arrival - Present on Arrival Any Indicators Present on Arrival: No History of DVT/PE: No History of Uncontrolled Diabetes: No Urinary Catheter: No History of Decub. Ulcer: No History Surgical Site Infection Following: None - Disposition Have Diagnosis and Disposition been Completed?: Yes Diagnosis: , UTI (urinary tract infection), Nausea & vomiting Disposition: HOME/ ROUTINE Disposition Time: 15:52 Patient Plan: Discharge Patient Problems: Current Active Problems Problem Status Onset Nausea & vomiting Acute Acute UTI (urinary tract infection) Acute Condition: IMPROVED Additional Instructions: -Discharge home with dicleegis, keflex, stay hydrated, bed restm, follow up with your own pmd within 2 days, return to the ER for any new or worsening signs or symptoms. Prescriptions: Cephalexin [cephalexin] 500 mg PO BID #14 cap Doxylamine/Pyridoxine HCl (B6) [Peter Hernandez 10-10 mg Tablet] 1 each PO BID #20 tablet. Referrals: Miller Jorge [Medical Doctor] - Follow up with primary [facility] [place] - Follow up with primary Forms: [employer] (Malay), WORK NOTE
[2018-08-20] MEDS ORDERED: DiphenhydrAMINE 50 mg/ml Inj IVP STA (14:05)
[2018-08-20 14:19] LABS: PH,URINE 6.5 (4.7-8.0); URINE APPEARANCE SLIGHT-CLOUDY (CLEAR); URINE BILIRUBIN NEGATIVE (NEGATIVE); URINE BLOOD MODERATE (NEGATIVE); URINE COLOR YELLOW (YELLOW); URINE GLUCOSE (UA) NEGATIVE (NEGATIVE); URINE LEUKOCYTE ESTERASE TRACE Leu/uL (NEGATIVE); URINE PROTEIN NEGATIVE mg/dL (<30 mg/dL); URINE UROBILINOGEN 0.2 E.U./dL (<1 E.U./dL)
[2018-08-20] MEDS ORDERED: Sodium Chloride 0.9% 500 ML IV STA (14:24)
[2018-08-20 14:26] LABS: URINE BACTERIA FEW /hpf; URINE EPITHELIAL CELLS MANY /hpf (0-5)
[2018-08-20 14:35] LABS: BASO # 0.02 K/mm3 (0.0-2.0); BASO % 0.3 % (0.0-3.0); EOS # 0.1 (0.0-0.7); EOS % 1.1 % (1.5-5.0); LYMPH # 1.8 (1.2-3.4); LYMPH % 22.4 % (22.0-35.0); MEAN CELL VOLUME 91.4 fl (80.0-105.0); MEAN CORPUSCULAR HEMOGLOBIN 30.8 pg (25.0-35.0); MEAN CORPUSCULAR HGB CONC 33.7 g/dl (31.0-37.0); MONO # 0.5 (0.1-0.6); MONO % 6.7 % (1.0-6.0); RBC 4.54 10^6/uL (3.5-6.1); RED CELL DISTRIBUTION WIDTH 13.7 % (11.5-14.5); WHITE BLOOD COUNT 7.9 10^3/uL (4.5-11.0)
[2018-08-20 14:45] LABS: ALB/GLOB RATIO 1.6 (1.1-1.8); ALBUMIN 4.8 g/dL (3.0-4.8); ALT/SGPT 29 U/L (7-56); AST/SGOT 27 U/L (14-36); BLOOD UREA NITROGEN 8 mg/dL (7-21); CALCIUM 9.6 mg/dL (8.4-10.5); GFR NON-AFRICAN AMERICAN > 60
[2018-08-20 16:09] VITALS: BP 111/59; PULSE 79; RESP 19; TEMP 98.5
== END 2018-08-20 16:09 | disposition home or self-care (01) ==
LOC: ED 13:42
DX: O23.40 Unspecified infection of urinary tract in pregnancy, unspecified trimester (principal); R11.2 Nausea with vomiting, unspecified; Z3A.00 Weeks of gestation of pregnancy not specified
CPT/HCPCS: 80053; 81001; 81025; 84702; 85025; 87804; 96361; 96374; 99284; J1200; J7030

== ENCOUNTER 2018-08-23 05:02 | Emergency (ER) | payer SELFPAY ==
[2018-08-23 05:33] VITALS: BMI 19.1
--- NOTE | 2018-08-23 05:55 | ED PDOC ---
Arrival/HPI - General Chief Complaint: Female Genitourinary Time Seen by Provider: 08/23/18 05:43 Historian: Patient - History of Present Illness Narrative History of Present Illness (Text): 08/23/18 05:50 23 year old female, whose history includes recent positive , presents to the emergency department with nausea, and possible miscarriage. Patient has a history of lmp 08/05/2018, G3AB2. Patient was seen in the er 3 days prior,discovered to be ,treated for nausea and discharged on antiemetics.She had not filled the prescription. Patient complains of abdominal cramps, and bloody discharge earlier,possible passage of POC. Patient denies any pain currently. Patient denies any fevers, chills, headache, dizziness, chest pain, shortness of breath, cough, or any other complaint. Time/Duration: Prior to Arrival, < week Symptom Onset: Gradual Symptom Course: Unchanged Quality: Cramping Activities at Onset: Light Context: Home Past Medical History - Provider Review Nursing Documentation Reviewed: Yes - Infectious Disease Hx of Infectious Diseases: None - Tetanus Immunization Tetanus Immunization: Unknown - Reproductive Currently : Yes - Cardiac Hx Cardiac Disorders: No - Pulmonary Hx Respiratory Disorders: No - Neurological Hx Neurological Disorder: No - HEENT Hx HEENT Disorder: No - Renal Hx Renal Disorder: No - Endocrine/Metabolic Hx Endocrine Disorders: No - Hematological/Oncological Hx Blood Disorders: No - Integumentary Hx Dermatological Disorder: Yes - Musculoskeletal/Rheumatological Hx Musculoskeletal Disorders: No - Gastrointestinal Hx Gastrointestinal Disorders: No - Genitourinary/Gynecological Hx Genitourinary Disorders: No - Psychiatric Hx Psychophysiologic Disorder: No Hx Substance Use: Yes - Anesthesia Hx Anesthesia: No Family/Social History - Physician Review Nursing Documentation Reviewed: Yes Family/Social History: No Known Family HX Smoking Status: Heavy Smoker > 10 Cigarettes Daily Hx Alcohol Use: Yes Hx Substance Use: Yes Substance used: pot Allergies/Home Meds Allergies/Adverse Reactions: Allergies No Known Allergies Allergy (Verified 08/23/18 05:34) Home Medications: Home Meds Medication Instructions Recorded Confirmed No Known Home Med 08/23/18 08/23/18 Review of Systems - Physician Review All systems were reviewed & negative as marked: Yes - Review of Systems Constitutional: absent: Fevers, Night Sweats Respiratory: absent: SOB, Cough Cardiovascular: absent: Chest Pain Gastrointestinal: Abdominal Pain, Nausea Neurological: absent: Headache, Dizziness Physical Exam Vital Signs Reviewed: Yes Vital Signs Temp Pulse Resp BP Pulse Ox 08/23/18 05:37 98.0 F 76 18 141/79 100 Temperature: Afebrile Blood Pressure: Normal Pulse: Regular Respiratory Rate: Normal Appearance: Positive for: Well-Appearing, Non-Toxic, Comfortable Pain Distress: None Mental Status: Positive for: Alert and Oriented X 3 - Systems Exam Head: Present: Atraumatic, Normocephalic Pupils: Present: PERRL Extroacular Muscles: Present: EOMI Conjunctiva: Present: Normal Mouth: Present: Moist Mucous Membranes Neck: Present: Normal Range of Motion Respiratory/Chest: Present: Clear to Auscultation, Good Air Exchange. No: Respiratory Distress, Accessory Muscle Use Cardiovascular: Present: Regular Rate and Rhythm, Normal S1, S2. No: Murmurs Abdomen: No: Tenderness, Distention, Peritoneal Signs Genitourinary/Pelvic Exam: Present: Normal External Genitalia. No: Vaginal Discharge, Vaginal Bleeding Back: Present: Normal Inspection Upper Extremity: Present: Normal Inspection. No: Cyanosis, Edema Lower Extremity: Present: Normal Inspection. No: Edema Neurological: Present: GCS=15, CN II-XII Intact, Speech Normal, Motor Func Grossly Intact, Normal Sensory Function Skin: Present: Warm, Dry, Normal Color. No: Rashes Psychiatric: Present: Alert, Oriented x 3, Normal Insight, Normal Concentration Medical Decision Making ED Course and Treatment: 08/23/18 07:00 Case endorsed to /pending labs/TV ultrasound/reassess/final disposition - Scribe Statement The provider has reviewed the documentation as recorded by the Ortiz Garnica Provider Scribe Attestation: All medical record entries made by the Scribe were at my direction and personally dictated by me. I have reviewed the chart and agree that the record accurately reflects my personal performance of the history, physical exam, medical decision making, and the department course for this patient. I have also personally directed, reviewed, and agree with the discharge instructions and disposition. Disposition/Present on Arrival - Present on Arrival Any Indicators Present on Arrival: No History of DVT/PE: No History of Uncontrolled Diabetes: No Urinary Catheter: No History of Decub. Ulcer: No History Surgical Site Infection Following: None - Disposition Have Diagnosis and Disposition been Completed?: No Diagnosis: , Vaginal bleeding affecting early Disposition Time: 07:00 Condition: STABLE Forms: [employer] (Irish)
[2018-08-23] MEDS ORDERED: Sodium Chloride 0.9% 1,000 ML IV SCH (06:15)
[2018-08-23 06:40] LABS: HEMOGLOBIN 13.9 g/dL (12.0-16.0); MEAN CELL VOLUME 90.5 fl (80.0-105.0); MEAN CORPUSCULAR HEMOGLOBIN 30.8 pg (25.0-35.0); MEAN PLATELET VOLUME 12.3 fl (7.0-11.0); RBC 4.52 10^6/uL (3.5-6.1); RED CELL DISTRIBUTION WIDTH 13.3 % (11.5-14.5); WHITE BLOOD COUNT 11.6 10^3/uL (4.5-11.0)
[2018-08-23 07:24] LABS: ALB/GLOB RATIO 1.6 (1.1-1.8); ALBUMIN 4.9 g/dL (3.0-4.8); ALT/SGPT 20 U/L (7-56); AST/SGOT 37 U/L (14-36); BLOOD UREA NITROGEN 7 mg/dL (7-21); CALCIUM 9.7 mg/dL (8.4-10.5); GFR NON-AFRICAN AMERICAN > 60
[2018-08-23 07:29] VITALS: O2SAT 99
--- NOTE | 2018-08-23 09:07 | US ---
Date of service: 08/23/2018 PROCEDURE: OB Pelvic Ultrasound HISTORY: possible miscarriage LMP not provided COMPARISON: Not available FINDINGS: UTERUS: Gestational sac: 18 mm, equal to 6 weeks 1 day. No identifiable pole No identifiable cardiac activity No yolk sac visualized Irregular echoes seen within gestational sac. Roxanne-gestational hemorrhage: None. Findings are concerning for an embryonic . Follow-up with transvaginal pelvic ultrasound and serial beta HCG is advised Uterus measures 8.7 x 5.9 x 7.0 cm. Normal in size and appearance. CERVIX: Measures 2.8 cm. Trace endocervical fluid with some echogenic material. Possible blood clot. RIGHT OVARY: Measures 3.9 x 3.0 x 3.7 cm. No solid mass lesion. Normal flow. Simple cyst, 2.1 cm diameter. LEFT OVARY: Measures 3.1 x 2.1 x 2.5 cm. No solid mass. Normal flow. FREE FLUID: None. OTHER FINDINGS: None. IMPRESSION: Possible anembryonic . Given that the sac diameter is only 18 mm, follow-up with transvaginal pelvic ultrasound examination and serial beta HCG is advised. Minimal complex endocervical fluid possible blood clot.
[2018-08-23 09:21] VITALS: BP 108/75; PULSE 69; RESP 17; TEMP 98.1
--- NOTE | 2018-08-23 09:23 | ED PDOC ---
Physical Exam Vital Signs Reviewed: Yes Vital Signs Temp Pulse Resp BP Pulse Ox 08/23/18 09:20 98.1 F 69 17 108/75 99 08/23/18 07:29 85 20 109/60 99 08/23/18 05:37 98.0 F 76 18 141/79 100 Temperature: Afebrile Blood Pressure: Normal Pulse: Regular Respiratory Rate: Normal Appearance: Positive for: Well-Appearing, Non-Toxic, Comfortable Pain Distress: None Mental Status: Positive for: Alert and Oriented X 3 Medical Decision Making ED Course and Treatment: 08/23/18 09:22 Signed out to me by pending labs and ultrasound. 08/23/18 09:[address] Sheets, trade show manager train electronic technician. 08/23/18 10:20 Patient states feeling better and would like to go home. Patient is very well appearing and non-toxic. Vital signs are stable. I discussed the results of the work-up, diagnosis and treatment. Written discharge instructions were provided to patient. Additional verbal instructions were given and discussed with patient. We discussed the [facility] beta quant. I also reiterated reasons to immediately return to the ER including: worsening in current symptoms and/or new, continued, or concerning symptoms. Pt understood and agreed. - Lab Interpretations Lab Results: Total Bilirubin 0.5 mg/dL (0.2-1.3) 08/23/18 06:00 AST 37 U/L (14-36) H D 08/23/18 06:00 ALT 20 U/L (7-56) 08/23/18 06:00 Alkaline Phosphatase 52 U/L (38-126) 08/23/18 06:00 Total Protein 7.9 g/dL (5.8-8.3) 08/23/18 06:00 Albumin 4.9 g/dL (3.0-4.8) H 08/23/18 06:00 Globulin 3.0 gm/dL 08/23/18 06:00 Albumin/Globulin Ratio 1.6 (1.1-1.8) 08/23/18 06:00 Beta HCG, Quant 75945.00 mIU/mL (0-6.15) H 08/23/18 06:00 I have reviewed the lab results: Yes - RAD Interpretation Narrative RAD Interpretations (Text): 08/23/18 09:23 Ultrasound reviewed by radiologist, shows: IMPRESSION: Possible anembryonic . Given that the sac diameter is only 18 mm, follow-up with transvaginal pelvic ultrasound examination and serial beta HCG is advised. Minimal complex endocervical fluid possible blood clot. Radiology Orders: 08/23/18 06:05 OB TRANSVAGINAL [US] Stat Substance Abuse Nurse: Radiologist - Medication Orders Current Medication Orders: Sodium Chloride (Sodium Chloride 0.9%) 1,000 mls @ 100 mls/hr IV .Q10H CJ Last Admin: 08/23/18 06:54 Dose: 100 mls/hr eMAR Start Stop Document 08/23/18 06:54 DM (Rec: 08/23/18 06:54 DM [id number]) Intravenous Solution Start Date 08/23/18 Start Time 06:54 - Scribe Statement The provider has reviewed the documentation as recorded by the Scribe Peri Katz Provider Scribe Attestation: All medical record entries made by the Scribe were at my direction and personally dictated by me. I have reviewed the chart and agree that the record accurately reflects my personal performance of the history, physical exam, medical decision making, and the department course for this patient. I have also personally directed, reviewed, and agree with the discharge instructions and disposition. Disposition/Present on Arrival - Present on Arrival Any Indicators Present on Arrival: No History of DVT/PE: No History of Uncontrolled Diabetes: No Urinary Catheter: No History of Decub. Ulcer: No History Surgical Site Infection Following: None - Disposition Have Diagnosis and Disposition been Completed?: Yes Diagnosis: Incomplete Disposition: HOME/ ROUTINE Disposition Time: 10:15 Patient Plan: Discharge Patient Problems: Current Active Problems Problem Status Onset Incomplete Acute Condition: STABLE Discharge Instructions (ExitCare): Miscarriage (DC) Additional Instructions: DEYANIRA DÍAZ, thank you for letting us take care of you today. Your provider was Blanca Rodriguez MD and you were treated for possible missed ab. The emergency medical care you received today was directed at your acute symptoms. If you were prescribed any medication, please fill it and take as directed. It may take several days for your symptoms to resolve. Return to the Emergency Department if your symptoms worsen, do not improve, or if you have any other problems. Please go to your doctor's office or RETURN TO THE THE EMERGENCY DEPARTMENT IN 2 DAYS FOR REPEAT BETA QUANT (blood test that measures the hormones). Bring any paperwork you were given at discharge with you along with any medications you are taking to your follow up visit. Our treatment cannot replace ongoing medical care by a primary care provider outside of the emergency department. Thank you for allowing the [facility] team to be part of your care today. Forms: [email or web address] (Yakut)
== END 2018-08-23 15:32 | disposition home or self-care (01) ==
LOC: ED 05:02
DX: O03.4 Incomplete spontaneous abortion without complication (principal)
CPT/HCPCS: 76817; 80053; 84702; 85027; 86850; 86900; 99284; J7030